=== PATIENT | female | born 1980 | race Two or more races ===

== ENCOUNTER 2016-08-29 14:55 | Emergency (ER) | payer MEDICAID ==
[~2016-08-29] VITALS: Ht 167.6 cm; Wt 80.5 kg
[~2016-08-29 14:55] MED LIST: MULT-658 PO; TRAM50TA2 PO
[2016-08-29] MEDS ORDERED: HYDROcodone/APAP 10/325 MG TABLET PO STA (15:20)
[2016-08-29] MEDS ORDERED: HYDROcodone/APAP 10/325 MG TABLET ONE (15:52)
[2016-08-29 15:57] LABS: HCG UR OBC PASS
[2016-08-29 16:10] LABS: HEMOGLOBIN 12.2 g/dL (11.7-16.4)
[2016-08-29 16:21] LABS: ASPARTATE AMINO TRANSFERASE 17 U/L (15-37); BLOOD UREA NITROGEN 18 mg/dL (7-18)
[2016-08-29 17:13] VITALS: BP 110/68
== END 2016-08-29 17:15 | disposition home or self-care (01) ==
LOC: ED 16:06
DX: N94.4 Primary dysmenorrhea (principal); R42 Dizziness and giddiness; Z90.49 Acquired absence of other specified parts of digestive tract; Z90.721 Acquired absence of ovaries, unilateral
CPT/HCPCS: 36415; 76830; 80053; 81001; 81025; 85025; 85610; 99285

== ENCOUNTER 2016-09-14 10:45 | Emergency (ER) | payer MEDICAID ==
[~2016-09-14] VITALS: Ht 167.6 cm; Wt 82.4 kg
[2016-09-14] MEDS ORDERED: FENTANYL PF 100 MCG/2ML IM ONE (11:30)
[2016-09-14] MEDS ORDERED: ONDANSETRON ODT 4 MG PO ONE (11:30)
[2016-09-14 11:45] LABS: ASPARTATE AMINO TRANSFERASE 14 U/L (15-37); BLOOD UREA NITROGEN 15 mg/dL (7-18)
[2016-09-14 11:52] LABS: HCG UR OBC PASS
[2016-09-14 11:58] LABS: HEMOGLOBIN 11.4 g/dL (11.7-16.4)
[2016-09-14] MEDS ORDERED: FENTANYL PF 100 MCG/2ML ONE (12:22)
[2016-09-14] MEDS ORDERED: ONDANSETRON ODT 4 MG ONE (12:22)
[2016-09-14 12:32] VITALS: BP 103/68
== END 2016-09-14 13:28 | disposition home or self-care (01) ==
LOC: ED 12:02
DX: R10.2 Pelvic and perineal pain (principal); Z91.041 Radiographic dye allergy status; Z91.048 Other nonmedicinal substance allergy status
CPT/HCPCS: 36415; 76830; 80053; 81003; 81025; 83690; 85025; 96372; 99285; J3010; Q0162

== ENCOUNTER 2017-03-11 16:43 | Emergency (ER) | payer MEDICAID ==
[~2017-03-11] VITALS: Ht 167.6 cm; Wt 86.6 kg
[2017-03-11] MEDS ORDERED: SODIUM CHLORIDE 0.9% 1,000ML IVBOLUS ONE (17:00)
[2017-03-11] MEDS ORDERED: MORPHINE SULFATE 4 MG/ML, 1ML IVPush PRN (17:00)
[2017-03-11] MEDS ORDERED: ONDANSETRON 2MG/ML, 2ML IVPush ONE (17:00)
[2017-03-11] MEDS ORDERED: OXYcodone/APAP 5/325MG TABLET ONE (17:29)
[2017-03-11] MEDS ORDERED: OXYcodone/APAP 5/325MG TABLET PO ONE (17:30)
[2017-03-11 17:32] LABS: HEMATOCRIT 36.6 % (34.6-47.8); HEMOGLOBIN 11.8 g/dL (11.7-16.4); WHITE BLOOD COUNT 6.8 x10^3/uL (3.4-10)
[2017-03-11 17:42] LABS: BLOOD UREA NITROGEN 15 mg/dL (7-18)
[2017-03-11] MEDS ORDERED: SODIUM CHLORIDE FLUSH 10ML SYR IVF ONE (18:00)
[2017-03-11] MEDS ORDERED: KETOROLAC 30 MG/1 ML ONE (18:25)
[2017-03-11] MEDS ORDERED: KETOROLAC 30 MG/1 ML IM ONE (18:30)
[2017-03-11 19:16] VITALS: BP 110/72
== END 2017-03-11 19:19 | disposition home or self-care (01) ==
LOC: ED 18:32
DX: R10.2 Pelvic and perineal pain (principal); Z90.49 Acquired absence of other specified parts of digestive tract
CPT/HCPCS: 36415; 76830; 80048; 81003; 82040; 84703; 85025; 99285

== ENCOUNTER 2017-11-23 14:18 | Emergency (ER) | payer MEDICAID ==
[~2017-11-23] VITALS: Ht 167.6 cm; Wt 70.0 kg
[2017-11-23 14:27] VITALS: BP 110/63
[2017-11-23] MEDS ORDERED: HYDROcodone/APAP 5/325 TABLET ONE (15:25)
[2017-11-23] MEDS ORDERED: HYDROcodone/APAP 5/325 TABLET PO ONE (15:30)
== END 2017-11-23 15:36 | disposition home or self-care (01) ==
LOC: ED 15:30
DX: K02.9 Dental caries, unspecified (principal)
CPT/HCPCS: 99283